=== PATIENT | male | born 1970 | race Two or more races ===

== ENCOUNTER 2022-11-28 06:12 | Inpatient (IN) | payer OTHER ==
[2022-11-26 09:22] LABS: Basophils # (auto) 0.1 10 ^3/uL (0-0.2); Basophils % (auto) 1.4 % (0.0-2.0); Eosinophils # (auto) 0.2 10 ^3/uL (0-0.8); Eosinophils % (auto) 4.3 % (0.0-7.0); Hematocrit 46.4 % (41.0-53.0); Hemoglobin 15.6 g/dL (13.5-17.5); Lymphocytes # (auto) 1.9 10 ^3/uL (0.4-5.4); Lymphocytes % (auto) 36.7 % (10.0-50.0); Mean Corpuscular Hemoglobin 31.8 pg (28.0-32.0); Mean Corpuscular Hgb Conc. 33.7 g/dL (32.0-36.0); Mean Corpuscular Volume 94.5 fL (80.0-100.0); Monocytes # (auto) 0.3 10 ^3/uL (0-1.3); Monocytes % (auto) 6.2 % (0.0-12.0); Neutrophils # (auto) 2.6 10 ^3/uL (1.6-8.6); Neutrophils % (auto) 51.4 % (37.0-80.0); Nucleated Red Blood Cells % 0.3 %; Red Blood Cells 4.91 10^6/uL (4.5-5.90); Red Cell Distribution Width 13.6 % (11.8-14.3); White Blood Cell 5.1 10^3/uL (4.4-10.8)
[2022-11-26 09:38] LABS: INR 0.94 (0.9-1.15); Partial Thromboplastin Time 25.8 SEC (24.5-34.5); Prothrombin Time 9.9 sec (9.3-11.8); Urine Bacteria NONE SEEN /hpf (None Seen); Urine Blood Negative /uL (Negative); Urine Clarity Clear (Clear); Urine Color Yellow (Yellow); Urine Protein, UAD Negative (Negative); Urine Specific Gravity 1.016 (1.001-1.035); Urine Urobilinogen Normal (Negative); Urine WBC 1 /hpf (0 - 3)
[2022-11-26 10:24] LABS: Alanine Aminotransferase 103 U/L (7-40); Albumin 4.2 g/dL (3.2-4.8); Alkaline Phosphatase 96 U/L (46-116); Anion Gap 5 (5-15); Aspartate Aminotransferase 69 U/L (13-40); BUN/Creatinine Ratio 11.4 (10.0-20.0); Blood Urea Nitrogen 10 mg/dL (9-23); Calcium 9.4 mg/dL (8.7-10.4); Carbon Dioxide 27 mmol/L (20-30); Chloride 108 mmol/L (98-107); Glucose 124 mg/dL (74-106); Potassium 4.1 mmol/L (3.5-5.1); Sodium 140 mmol/L (136-145)
[~2022-11-28] VITALS: Ht 172.7 cm; Wt 100.6 kg
[~2022-11-28 06:12] MED LIST: AMLO1TAB22 PO; GABA-1250 PO; LOSA25TA5 PO; PANT40TA2 PO
[2022-11-28] MEDS ORDERED: ceFAZolin 1GM/50ML 100 ML IV ONE (06:15)
[2022-11-28] MEDS ORDERED: TRANEXAMIC ACID 20 ML ONE (06:42)
[2022-11-28] MEDS ORDERED: LIDOCAINE 2% JELLY 11ml (GLYDO) ONE (06:56)
[2022-11-28] MEDS ORDERED: fentaNYL CITRATE 100 MCG/2 ML VL ONE (07:29)
[2022-11-28] MEDS ORDERED: HYDROmorphone HCL 2 MG/ML VL/or syr ONE (07:29)
[2022-11-28] MEDS ORDERED: MIDAZOLAM HCL 2MG/2ML 2ml VIAL (1mg/ml) ONE (07:29)
[2022-11-28] MEDS ORDERED: SUCCINYLCHOLINE CHLORIDE 20 MG/ML 10ML VIAL IV ONE (07:34)
[2022-11-28] MEDS ORDERED: DexAMETHasone SOD PHOS 10MG/1ML VIAL INJ IV ONE ×2 (08:30→18:34)
[2022-11-28] MEDS ORDERED: MORPHINE SULFATE INJ 2 MG/ml SYRG IV PRN (08:30)
[2022-11-28] MEDS ORDERED: NITROGLYCERIN 0.4 MG SL TAB SL PRN (08:30)
[2022-11-28] MEDS ORDERED: ACETAMINOPHEN 325 MG TAB PO PRN (08:30)
[2022-11-28] MEDS ORDERED: ceFAZolin 1GM/50ML 50 ML IV SCH (08:30)
[2022-11-28] MEDS ORDERED: LABETALOL HCL 5 MG/ML 4ML SYRINGE IV PRN (08:45)
[2022-11-28] MEDS ORDERED: ePHEDrine SULFATE 50 MG/ML AMP IV PRN (08:45)
[2022-11-28] MEDS ORDERED: MIDAZOLAM HCL 2MG/2ML 2ml VIAL (1mg/ml) IV PRN (08:45)
[2022-11-28] MEDS ORDERED: ONDANSETRON HCL 4 MG/2 ML VIAL IV PRN (08:45)
[2022-11-28] MEDS ORDERED: HYDROmorphone HCL 2 MG/ML VL/or syr IV PRN (08:45)
[2022-11-28] MEDS ORDERED: MORPHINE SULFATE 4 MG/ML SYR/VIAL IV PRN (08:45)
[2022-11-28] MEDS ORDERED: PROPOFOL 10 MG/ML 20 ML IV ONE (09:08)
[2022-11-28] MEDS ORDERED: SUGAMMADEX 200mg/2ml Vial (100MG/ML) IV ONE (10:49)
[2022-11-28] MEDS ORDERED: ONDANSETRON HCL 4 MG/2 ML VIAL ONE (10:49)
[2022-11-28 11:14] VITALS: O2SAT 95
[2022-11-28] MEDS: ONDANSETRON HCL 4 MG/2 ML VIAL IV PRN ×2 (12:14→16:56)
[2022-11-28] MEDS: HYDROmorphone HCL 2 MG/ML VL/or syr IV PRN ×2 (13:37→14:31)
[2022-11-28] MEDS: CYCLOBENZAPRINE HCL 10 MG TAB PO SCH ×2 (14:35→21:29)
[2022-11-28] MEDS ORDERED: LOSARTAN POTASSIUM 25 MG TAB PO ONE (15:45)
[2022-11-28] MEDS: DOCUSATE SOD 100 MG CAP PO SCH ×2 (16:17→21:29)
[2022-11-28 16:30] VITALS: BP 131/78; PULSE 102; O2SAT 93
[2022-11-28 16:35] VITALS: BP 131/78; PULSE 102; TEMP 96.1; O2SAT 93
[2022-11-28] MEDS: D5W/SOD CHLO 0.9% 1,000 ML IV SCH ×2 (17:07→18:30)
[2022-11-28] MEDS: MORPHINE SULFATE INJ 2 MG/ml SYRG IV PRN (17:26)
[2022-11-28] MEDS ORDERED: GABAPENTIN 400 MG CAP PO SCH (18:00)
[2022-11-28] MEDS ORDERED: ROCURONIUM 10MG/ML 10ML VIAL IV ONE (18:34)
[2022-11-28 20:00] VITALS: BP 136/64; PULSE 109; PULSE 114; RESP 14; TEMP 98.1
[2022-11-28] MEDS: GABAPENTIN 400 MG CAP PO SCH (21:29)
[2022-11-28 22:00] VITALS: BP 136/64; PULSE 109; RESP 14; TEMP 98.1; O2SAT 95
[2022-11-28] MEDS: HYDROcodone-ACET 10/325MG TAB PO PRN (22:11)
[2022-11-29] MEDS: MORPHINE SULFATE INJ 2 MG/ml SYRG IV PRN (00:51)
[2022-11-29 05:00] VITALS: BP 118/68; PULSE 96; RESP 14; TEMP 98.1; O2SAT 94
[2022-11-29] MEDS: GABAPENTIN 400 MG CAP PO SCH ×3 (05:04→18:00)
[2022-11-29] MEDS: CYCLOBENZAPRINE HCL 10 MG TAB PO SCH ×2 (05:07→14:00)
[2022-11-29] MEDS: HYDROcodone-ACET 10/325MG TAB PO PRN ×2 (05:19→15:13)
[2022-11-29] MEDS: D5W/SOD CHLO 0.9% 1,000 ML IV SCH ×2 (05:20→15:13)
[2022-11-29 08:00] VITALS: BP 112/65; PULSE 88; RESP 16; TEMP 97.8; O2SAT 95
[2022-11-29 08:30] VITALS: BP 112/65; PULSE 87; RESP 18; TEMP 97.8
[2022-11-29] MEDS ORDERED: amLODIPine BESYLATE 5 MG TAB PO SCH (10:00)
[2022-11-29] MEDS ORDERED: LOSARTAN POTASSIUM 25 MG TAB PO SCH (10:00)
[2022-11-29] MEDS: DOCUSATE SOD 100 MG CAP PO SCH (10:04)
[2022-11-29 12:00] VITALS: BP 119/77; PULSE 82; RESP 16; TEMP 97.9; O2SAT 95
[2022-11-29 16:00] VITALS: BP_SYST 119; BP_SYST 132; BP_SYST 134; BP_DIAS 74; BP_DIAS 77; BP_DIAS 85; PULSE 82; PULSE 88; PULSE 95; RESP 16; TEMP 97.6; TEMP 97.8; TEMP 97.9; O2SAT 95; O2SAT 96
== END 2022-11-29 18:35 | disposition home or self-care (01) | DRG 518 ==
LOC: SUR 06:12 → TELE 08:32 → TELE-WESTW 15:49
PROVIDERS: ADMIT Orthopaedic Surgery; ATTEND Internal Medicine
PROC: 01N10ZZ Release Cervical Nerve, Open Approach (ICD-10-PCS; 2022-11-28)
PROC: 00NW0ZZ Release Cervical Spinal Cord, Open Approach (ICD-10-PCS; 2022-11-28)
PROC: 4A11X4G Monitoring of Peripheral Nervous Electrical Activity, Intraoperative, External Approach (ICD-10-PCS; 2022-11-28)
PROC: 0RR30JZ Replacement of Cervical Vertebral Disc with Synthetic Substitute, Open Approach (ICD-10-PCS; principal; 2022-11-28 07:41)
DX: M48.02 Spinal stenosis, cervical region (principal); M50.123 Cervical disc disorder at C6-C7 level with radiculopathy; E66.9 Obesity, unspecified; I10 Essential (primary) hypertension; Z68.33 Body mass index [BMI] 33.0-33.9, adult; Z71.3 Dietary counseling and surveillance; Z53.29 Procedure and treatment not carried out because of patient's decision for other reasons
CPT/HCPCS: 36415; 72040; 76000; 80053; 81001; 85025; 85610; 85730; 86850; 86900; 86901; 97163; G0378; J0330; J0690; J1100; J2250; J2405; J2704; J7042

== ENCOUNTER 2023-09-16 06:15 | Inpatient (IN) | payer OTHER ==
[2023-09-15 09:09] LABS: Urine Bacteria None Seen /hpf (None Seen)
[2023-09-15 09:23] LABS: Basophils # (auto) 0.1 10 ^3/uL (0-0.2); Basophils % (auto) 0.8 % (0.0-2.0); Eosinophils # (auto) 0.2 10 ^3/uL (0-0.8); Eosinophils % (auto) 3.3 % (0.0-7.0); Hematocrit 47.2 % (41.0-53.0); Hemoglobin 16.4 g/dL (13.5-17.5); Lymphocytes # (auto) 2.6 10 ^3/uL (0.4-5.4); Lymphocytes % (auto) 36.2 % (10.0-50.0); Mean Corpuscular Hemoglobin 32.3 pg (28.0-32.0); Mean Corpuscular Hgb Conc. 34.8 g/dL (32.0-36.0); Monocytes # (auto) 0.6 10 ^3/uL (0-1.3); Monocytes % (auto) 7.7 % (0.0-12.0); Neutrophils # (auto) 3.8 10 ^3/uL (1.6-8.6); Nucleated Red Blood Cells % 0.1 %; Red Blood Cells 5.08 10^6/uL (4.5-5.90); Red Cell Distribution Width 13.8 % (11.8-14.3); White Blood Cell 7.3 10^3/uL (4.4-10.8)
[2023-09-15 09:31] LABS: Urine Blood Negative /uL (Negative); Urine Clarity Clear (Clear); Urine Color Light-Yellow (Yellow); Urine Protein, UAD Negative (Negative); Urine Specific Gravity 1.019 (1.001-1.035); Urine Urobilinogen Normal (Negative); Urine WBC 1 /hpf (0 - 3)
[2023-09-15 09:38] LABS: INR 0.93 (0.9-1.15); Partial Thromboplastin Time 24.5 SEC (24.5-34.5); Prothrombin Time 9.9 sec (9.3-11.8)
[2023-09-15 09:54] LABS: Alanine Aminotransferase 91 U/L (7-40); Alkaline Phosphatase 99 U/L (46-116); Anion Gap 7 (5-15); Blood Urea Nitrogen 13 mg/dL (9-23); Carbon Dioxide 24 mmol/L (20-30); Chloride 110 mmol/L (98-107); Glucose 132 mg/dL (74-106); Sodium 141 mmol/L (136-145)
[2023-09-15 09:56] LABS: Albumin 4.5 g/dL (3.2-4.8); Aspartate Aminotransferase 55 U/L (13-40); Bilirubin, Total 0.8 mg/dL (0.2-1.0); Total Protein 7.3 g/dL (5.7-8.2)
[~2023-09-16] VITALS: Ht 172.7 cm; Wt 98.4 kg
[~2023-09-16 06:15] MED LIST changes: +CELE400C PO; -GABA-1250 PO
[2023-09-16] MEDS: levoFLOXacin 750MG 150 ML IV ONE (06:45)
[2023-09-16] MEDS: TRANEXAMIC ACID 20 ML ONE (06:54)
[2023-09-16] MEDS: SUCCINYLCHOLINE CHLORIDE 20 MG/ML 10ML VIAL IV ONE (07:08)
[2023-09-16] MEDS ORDERED: PROPOFOL 10 MG/ML 20 ML IV ONE ×2 (07:10→09:20)
[2023-09-16] MEDS ORDERED: fentaNYL CITRATE 100 MCG/2 ML VL ONE ×3 (07:11→09:16)
[2023-09-16] MEDS: VANCOMYCIN HCL 1000 MG VL ONE (07:24)
[2023-09-16] MEDS: LIDOCAINE W/ EPINEPHRINE 1% 20ML VIAL ONE (08:35)
[2023-09-16] MEDS ORDERED: ONDANSETRON HCL 4 MG/2 ML VIAL ONE (08:52)
[2023-09-16] MEDS ORDERED: NEOSTIGMINE 1 MG/ML INJ (10mg/10ML VIAL) ONE (09:55)
[2023-09-16] MEDS ORDERED: GLYCOPYRROLATE 0.2 MG/ML 1ML VIAL ONE (09:55)
[2023-09-16] MEDS ORDERED: DOCUSATE SOD 100 MG CAP PO PRN (10:15)
[2023-09-16] MEDS: levoFLOXacin 500MG 100 ML IV ONE (10:15)
[2023-09-16] MEDS ORDERED: NITROGLYCERIN 0.4 MG SL TAB SL PRN (10:15)
[2023-09-16] MEDS ORDERED: MORPHINE SULFATE INJ 2 MG/ml SYRG IV PRN (10:15)
[2023-09-16] MEDS ORDERED: HYDROcodone-ACET 10/325MG TAB PO PRN (10:15)
[2023-09-16 10:27] VITALS: O2SAT 98
[2023-09-16] MEDS: ONDANSETRON HCL 4 MG/2 ML VIAL IV ONE (10:45)
[2023-09-16] MEDS ORDERED: MEPERIDINE HCL (25 MG/ML) 1ML VIAL IV PRN (10:45)
[2023-09-16] MEDS: HYDROmorphone HCL 2 MG/ML VL/or syr IV PRN ×2 (11:16→15:37)
[2023-09-16 12:30] VITALS: BP 136/80; PULSE 76; RESP 14; TEMP 97.7; O2SAT 96
[2023-09-16] MEDS: D5W/SOD CHLO 0.9% 1,000 ML IV SCH (12:59)
[2023-09-16] MEDS: CYCLOBENZAPRINE HCL 10 MG TAB PO SCH (14:11)
[2023-09-16] MEDS: ONDANSETRON HCL 4 MG/2 ML VIAL IV PRN (15:36)
[2023-09-16 17:00] VITALS: BP 116/68; PULSE 86; RESP 17; TEMP 97.7; O2SAT 98
[2023-09-16 20:00] VITALS: PULSE 91; RESP 18; O2SAT 98
[2023-09-16 21:00] VITALS: BP 131/78; PULSE 101; RESP 20; TEMP 97.6; O2SAT 95
[2023-09-16] MEDS: VANCOMYCIN 1GM/200ML 200 ML IV SCH (21:17)
[2023-09-16] MEDS: DOCUSATE SOD 100 MG CAP PO SCH (21:17)
[2023-09-16] MEDS: amLODIPine BESYLATE 5 MG TAB PO SCH (21:31)
[2023-09-17 05:00] VITALS: BP 152/88; PULSE 87; RESP 24; TEMP 98; O2SAT 95
[2023-09-17 08:25] VITALS: BP 130/86; PULSE 84; RESP 19; TEMP 98.3; O2SAT 94
[2023-09-17] MEDS: VANCOMYCIN 1GM/200ML 200 ML IV SCH (11:19)
[2023-09-17] MEDS: PANTOPRAZOLE 40 MG TAB PO SCH (11:20)
[2023-09-17 12:25] VITALS: BP 146/88; PULSE 87; RESP 19; TEMP 98.8; O2SAT 93
[2023-09-17] MEDS: OXYCODONE W/ ACETAMINOPHEN 5/325MG TABLET PO PRN (15:52)
[2023-09-17 16:20] VITALS: BP 138/83; PULSE 91; RESP 19; TEMP 100.8; O2SAT 94
[2023-09-17] MEDS: ACETAMINOPHEN 325 MG TAB PO PRN (18:39)
[2023-09-17 21:00] VITALS: BP_SYST 133; BP_SYST 160; BP_DIAS 57; BP_DIAS 71; PULSE 73; PULSE 93; RESP 17; RESP 19; TEMP 98.1; TEMP 98.8; O2SAT 94; O2SAT 95
[2023-09-17] MEDS: MILK OF MAGNESIA 30ML SUSP PO PRN (21:30)
[2023-09-18] VITALS (7 sets, daily range): BP systolic 127–139; BP diastolic 73–91; PULSE 64–115; RESP 16–20; TEMP 97.8–98.9; O2SAT 92–97
== END 2023-09-18 23:10 | disposition home health service (06) | DRG 455 ==
LOC: SUR 06:15 → TELE 10:01 → OVERFLOW 10:25 → EAST 12:32
PROVIDERS: ADMIT Orthopaedic Surgery; ATTEND Orthopaedic Surgery
PROC: 0SG0071 Fusion of Lumbar Vertebral Joint with Autologous Tissue Substitute, Posterior Approach, Posterior Column, Open Approach (ICD-10-PCS; 2023-09-16)
PROC: 01NB0ZZ Release Lumbar Nerve, Open Approach (ICD-10-PCS; 2023-09-16)
PROC: 00NY0ZZ Release Lumbar Spinal Cord, Open Approach (ICD-10-PCS; 2023-09-16)
PROC: 4A11X4G Monitoring of Peripheral Nervous Electrical Activity, Intraoperative, External Approach (ICD-10-PCS; 2023-09-16)
PROC: 0SG00AJ Fusion of Lumbar Vertebral Joint with Interbody Fusion Device, Posterior Approach, Anterior Column, Open Approach (ICD-10-PCS; principal; 2023-09-16 07:21)
DX: M48.062 Spinal stenosis, lumbar region with neurogenic claudication (principal); M51.16 Intervertebral disc disorders with radiculopathy, lumbar region; Z88.1 Allergy status to other antibiotic agents
CPT/HCPCS: 36415; 72100; 76000; 80053; 81001; 85025; 85610; 85730; 86850; 86900; 86901; 87086; 97110; 97116; 97163; 97530; G0378; J0330; J2405; J2704; J7042